=== PATIENT | male | born 1955 | race Caucasian/White ===

== ENCOUNTER 2018-01-08 20:50 | Emergency (ER) | payer OTHER ==
[~2018-01-08] VITALS: Ht 162.6 cm; Wt 106.5 kg
[2018-01-08 22:46] VITALS: BP 109/93
== END 2018-01-08 22:53 | disposition left against medical advice (07) ==
LOC: EME 20:50
DX: T40.601A Poisoning by unspecified narcotics, accidental (unintentional), initial encounter (principal); J44.9 Chronic obstructive pulmonary disease, unspecified; M79.7 Fibromyalgia; F17.200 Nicotine dependence, unspecified, uncomplicated
CPT/HCPCS: 93005; 99281; 99285